=== PATIENT | male | born 1945 | race Two or more races ===

== ENCOUNTER 2019-07-10 00:19 | Emergency (ER) | payer SELFPAY ==
[~2019-07-10] VITALS: Ht 157.5 cm; Wt 73.5 kg
[2019-07-10] MEDS ORDERED: TAMS-1 PO (00:26)
[2019-07-10 02:34] LABS: APPEARANCE,URINE CLEAR (CLEAR); BILIRUBIN,URINE NEGATIVE (NEGATIVE); GLUCOSE, URINE (UA) NEGATIVE (NEGATIVE); KETONES,URINE TRACE mg/dL (NEGATIVE); LEUKOCYTE ESTERASE ,URINE NEGATIVE (NEGATIVE); NITRATE,URINE NEGATIVE (NEGATIVE); OCCULT BLOOD,URINE LARGE (NEGATIVE); PH,URINE 6.5 (5.0-8.0); PROTEIN,URINE NEGATIVE (NEGATIVE); UROBILINOGEN,URINE 0.2 mg/dL (<=1.0)
[2019-07-10 02:41] LABS: BACTERIA,URINE None Seen /HPF (None Seen); RBC,URINE 51-100 /HPF (0-2); SQUAMOUS EPITHELIAL CELL,UR None Seen /LPF (None Seen); WBC,URINE 0-2 /HPF (0-5)
[2019-07-10 04:13] VITALS: BP 120/64
== END 2019-07-10 04:16 | disposition home or self-care (01) ==
LOC: EMS 00:22
DX: R33.9 Retention of urine, unspecified (principal)
CPT/HCPCS: 51702